=== PATIENT | female | born 1940 | race Caucasian/White ===

== ENCOUNTER 2020-10-19 13:10 | Outpatient (CLI) | payer MEDICARE, OTHER | END 2020-10-19 13:11 | disposition home or self-care (01) | LOC: BICCT 13:10 | PROVIDERS: ATTEND Neurological Surgery | DX: M54.5 Low back pain (principal); M25.552 Pain in left hip; M47.816 Spondylosis without myelopathy or radiculopathy, lumbar region; M16.12 Unilateral primary osteoarthritis, left hip | CPT/HCPCS: 72131 ==

== ENCOUNTER 2023-11-05 08:42 | Outpatient (CLI) | payer OTHER | END 2023-11-05 08:43 | disposition home or self-care (01) | LOC: RAD 08:42 | PROVIDERS: ATTEND Internal Medicine Critical Care Medicine | DX: R06.00 Dyspnea, unspecified (principal) | CPT/HCPCS: 71046 ==

== ENCOUNTER 2024-03-10 10:25 | Day surgery (SDC) | payer OTHER ==
[~2024-03-10 10:25] MED LIST: Zoledronic Acid/Mannitol&Water 5 MG in Premix 1 BAG IVPB SCH
[2024-03-10] MEDS: Zoledronic Acid/Mannitol&Water 5 MG in Premix 1 BAG IVPB SCH (11:02)
[2024-03-10 17:18] VITALS: BP 177/78; TEMP 98.2
== END 2024-03-10 12:02 | disposition home or self-care (01) ==
LOC: ONC/OP 10:25
PROVIDERS: ATTEND Internal Medicine Endocrinology, Diabetes & Metabolism
DX: M81.8 Other osteoporosis without current pathological fracture (principal); E78.5 Hyperlipidemia, unspecified; I10 Essential (primary) hypertension; E03.9 Hypothyroidism, unspecified; G47.33 Obstructive sleep apnea (adult) (pediatric); I48.91 Unspecified atrial fibrillation; J45.40 Moderate persistent asthma, uncomplicated; K21.9 Gastro-esophageal reflux disease without esophagitis; K58.9 Irritable bowel syndrome, unspecified; Z88.2 Allergy status to sulfonamides; Z88.1 Allergy status to other antibiotic agents; Z88.6 Allergy status to analgesic agent; Z88.8 Allergy status to other drugs, medicaments and biological substances; Z90.722 Acquired absence of ovaries, bilateral; Z98.51 Tubal ligation status; Z98.890 Other specified postprocedural states; Z90.89 Acquired absence of other organs; Z79.890 Hormone replacement therapy; Z79.01 Long term (current) use of anticoagulants; Z79.899 Other long term (current) drug therapy
CPT/HCPCS: 96365; J3489